=== PATIENT | female | born 1955 | race Caucasian/White ===

== ENCOUNTER 2018-03-17 09:07 | Day surgery (SDC) | payer OTHER, BC ==
[~2018-03-17 09:07] MED LIST: ACETAMINOPHEN 1,000 MG/100 ML BTL IV ONE; CLINDAMYCIN PHOS/D5W 900MG 900 MG/50 ML BAG IVPB ONE
[2018-03-17] MEDS ORDERED: 0.9 % SODIUM CHLORIDE 100ML BAG IV ONE (09:08)
[2018-03-17] MEDS ORDERED: *PACU ONLY* KETAMINE HCL 10 MG/ML (20ML) VIAL IV ONE (09:08)
[2018-03-17] MEDS ORDERED: ONDANSETRON HCL IV 4 MG/2 ML VIAL IVP ONE (09:08)
[2018-03-17] MEDS ORDERED: KETOROLAC 30 MG/ML VIAL IVP ONE (09:08)
[2018-03-17] MEDS ORDERED: BUPIVACAINE 0.5% W/EPI MPF 30 ML VIAL IVP ONE (09:08)
[2018-03-17] MEDS ORDERED: HYDROMORPHONE HCL 2 MG/ML VIAL IV ONE (09:08)
[2018-03-17] MEDS ORDERED: PROPOFOL 10 MG/ML VIAL IV ONE (09:08)
[2018-03-17] MEDS ORDERED: VANCOMYCIN HCL 1 GM VIAL IVPB ONE (09:08)
[2018-03-17 09:47] LABS: BASO % 0.4 % (0-6); EOS % 2.2 % (0-6); GRAN % 66.9 % (47-80); HEMATOCRIT 41.6 % (35.0-47.0); HEMOGLOBIN 13.7 gm/dl (11.6-16.0); LYMPH % 24.8 % (16-45); MEAN CELL VOLUME 91.6 fl (81-97); MEAN CORPUSCULAR HEMOGLOBIN 30.2 pg (27-33); MEAN CORPUSCULAR HGB CONC 32.9 g/dl (32-36); MEAN PLATELET VOLUME 11.1 fl (7.4-10.4); MONO % 5.7 % (0-9); PLATELET COUNT 293 K/uL (130-400); RED BLOOD COUNT 4.54 M/uL (3.80-5.40); RED CELL DISTRIBUTION WIDTH 14.1 % (11.5-14.5); WHITE BLOOD COUNT W/O DIFF 10.1 K/uL (4.2-12.2)
[2018-03-17 10:03] LABS: BLOOD UREA NITROGEN 18 mg/dL (8-23); CREATININE 0.7 mg/dL (0.5-0.9); EST GLOMERULAR FILTRATION RATE > 60 mL/min; GLUCOSE,RANDOM 100 mg/dL (74-109)
--- NOTE | 2018-03-18 19:39 | Operative Note ---
DATE: 03/17/2018 PREOPERATIVE DIAGNOSIS: FRACTURE OF THE LEFT PATELLA. POSTOPERATIVE DIAGNOSIS: FRACTURE OF THE LEFT PATELLA. PROCEDURE: OPEN REDUCTION AND INTERNAL FIXATION LEFT PATELLA. STAFF SURGEON: JOAO SANTILLAN M.D. ANESTHESIA: GENERAL. PREPARATION: CHLORAPREP. INDIVIDUAL CONSIDERATIONS: NONE. PROCEDURE: The patient was taken to the Operating Room and placed supine on the operating table. She had a successful induction of a general anesthetic. Her left lower extremity was prepped and draped in the usual fashion. The limb was elevated and the tourniquet was inflated to 250 mmHg. She had an incision over the patella, about 10 cm. Sharp dissection carried down through the skin and subcutaneous tissue. Small veins were coagulated with a Bovie. I then dissected directly down to the patella. She had a transverse fracture. There was some comminution distally. I entered the fracture site, cleared clot and debris, and used a bone clamp to reduce it. This was verified by fluoroscopy. I placed two guide pins for the 4.0 cancellous screws from distal to proximal along the long axis of the patella. This was verified by fluoroscopy. I placed two 4.0 cancellous screws in lag fashion and then I placed an #18 gauge wire through the holes in a [id number] fashion, secured it, and this gave excellent stable osseous synthesis. When I put the patella through a full range of motion, I remained at reduction. This was verified by fluoroscopy. The tourniquet was let down and hemostasis was obtained with a Bovie. The subcu was closed with 2-0 Plus Vicryl. The skin was closed with norm. It should be noted that prior to making the skin incision, I did infiltrate the skin and subcutaneous tissue with 0.5% Marcaine with Epinephrine. A sterile Bulkee compressive dressing and the immobilizer were applied. The patient tolerated the procedure well. Needle and sponge counts were correct, estimated blood loss was minimal, and she was taken back to Recovery in good condition. There were no complications. JOB NUMBER: [id number] MTDD
== END 2018-03-17 13:35 | disposition home or self-care (01) ==
LOC: SUR 09:07
PROVIDERS: ATTEND Orthopaedic Surgery
DX: S82.035A Nondisplaced transverse fracture of left patella, initial encounter for closed fracture (principal); F17.210 Nicotine dependence, cigarettes, uncomplicated
CPT/HCPCS: 27524; 01392; 85025; 80048; 76000; J1885; J2405; J3370; J1170; J3490

== ENCOUNTER 2018-12-02 07:53 | Day surgery (SDC) | payer OTHER, BC ==
[2018-12-02] MEDS ORDERED: MIDAZOLAM HCL 2MG/2ML VIAL IV ONE (07:54)
[2018-12-02] MEDS ORDERED: KETAMINE HCL 100MG/1ML VIAL INJ ONE (07:54)
[2018-12-02] MEDS ORDERED: PROPOFOL 10 MG/ML VIAL IV ONE (07:54)
[2018-12-02] MEDS ORDERED: BUPIVACAINE 0.5% W/EPI MPF 30 ML VIAL IVP ONE (07:54)
[2018-12-02] MEDS ORDERED: LIDOCAINE 1% W/EPI 1:200,000 MPF 30ML SQ ONE (07:54)
[2018-12-02] MEDS ORDERED: LIDOCAINE 2% MDV (20MG/ML) 20ML VIAL IV ONE (07:54)
[2018-12-02] MEDS ORDERED: KETOROLAC 30 MG/ML VIAL IVP ONE (07:54)
--- NOTE | 2018-12-03 08:01 | Operative Note ---
DATE OF SURGERY: 12/02/2018 PREOPERATIVE DIAGNOSIS: Painful hardware, left knee, with EPL patella fracture. POSTOPERATIVE DIAGNOSIS: Painful hardware, left knee, with EPL patella fracture. OPERATION: Removal of deep buried hardware of left patella. Staff Surgeon: Deondre Marquez MD Anesthesia: Local with sedation. Preparation: Chloraprep. Individual Considerations: None. PROCEDURE: The patient was taken to the operating room, placed supine on the operating room table. Her left knee was prepped and draped in the usual fashion. She had IV sedation given. I made an incision directly over the patella through the previous incision. Skin was infiltrated with a 50/50 mixture of 0.5% Marcaine with epinephrine and 1% lidocaine with epinephrine. Sharp dissection carried down through the skin and subcutaneous tissue. I found the knot up top, unraveled it, and then found a crossing wire down the superior-inferior pole of the patella. I attempted to pull it through but it would not come. It was stuck on the screws and I thought that trying to remove all that would actually cause more damage. It was just the wire and the knot that was bothering her. I went ahead and amputated it superiorly and inferiorly right at the level of the screws. At this point, there was really nothing palpable. After irrigation, I went ahead and closed the subcu with 2-0 plus Vicryl, skin was closed with norm, and a sterile dressing was applied. She was taken back to recovery in good condition. There were no complications. KOFFI
== END 2018-12-02 11:25 | disposition home or self-care (01) ==
LOC: SUR 07:53
PROVIDERS: ATTEND Orthopaedic Surgery
DX: T85.848A Pain due to other internal prosthetic devices, implants and grafts, initial encounter (principal); F17.210 Nicotine dependence, cigarettes, uncomplicated
CPT/HCPCS: 20680; 01392; J1885; J3490 ×2